=== PATIENT | female | born 1990 | race American Indian/Alaskan Native ===

== ENCOUNTER 2016-05-02 11:07 | Emergency (ER) | payer MEDICAID, OTHER ==
[2016-05-02 11:44] VITALS: BP 114/72
[2016-05-02] MEDS ORDERED: MOTRIN PO ONE (13:30)
--- NOTE | 2016-05-02 13:30 | Emergency Department Report ---
- General Chief Complaint: Upper Respiratory Infection Stated Complaint: BAD HEADACHE/BLURRY VISION X 4DAYS Time Seen by Provider: 05/02/16 12:45 Source: patient Mode of arrival: Ambulatory Limitations: No Limitations - History of Present Illness Initial Comments: Patient here reporting headache since , patient moves around her head. She said is not always in the same area. Denies any nausea vomiting. Denies any blurred vision or decrease in vision. Denies any dizziness. She reports that she also has nasal congestion and runny nose that started a few weeks ago.. She says she feels feverish and chills that started yesterday.. She says she's taken Tylenol, NyQuil, Advil and Motrin p.m. without any relief. She says she has occasional cough that is worse at night. She said her headache is 10 out of 10 and localizes to the front of her head at present. Denies any chest pain or difficulty breathing. She reports that her uterus feels clogged. MD Complaint: fever, cough, rhinorrhea, nasal congestion, sinus pain, other ( headache) -: days(s) (headache), week(s) (runny nose, sinus pain and congestion without coughing for 2 weeks) Severity: severe Severity scale (0 -10): 10 Quality: aching Consistency: intermittent Improves With: NSAID, OTC cold medicine, cough suppressant Worsens With: nothing Context: other (none) Associated Symptoms: fever, chills, headache, rhinorrhea, nasal congestion, cough, other (clogged ears). denies: myalgias, diaphoresis, sore throat, stiff neck, chest pain, shortness of breath, abdominal pain, nausea, vomiting, diarrhea, dysuria, rash, confusion, right sweats, weight loss, epistaxis, hoarseness, ear pain Treatments Prior to Arrival: Ibuprofen, "cold medicine" - Related Data Previous Rx's Medication Instructions Recorded Last Taken Type Amoxicillin [Amoxicillin TAB] 875 mg PO BID #20 tablet 05/02/16 Unknown Rx Fluticasone [Flonase] 1 spray NS QDAY #1 bottle 05/02/16 Unknown Rx Ibuprofen [Motrin] 600 mg PO Q8H PRN #15 tablet 05/02/16 Unknown Rx Loratadine [Claritin] 10 mg PO DAILY #10 tablet 05/02/16 Unknown Rx Allergies Allergy/AdvReac Type Severity Reaction Status Date / Time No Known Allergies Allergy Verified 05/02/16 11:39 ED Review of Systems ROS: Stated complaint: BAD HEADACHE/BLURRY VISION X 4DAYS Other details as noted in HPI Comment: All other systems reviewed and negative Constitutional: chills, fever Eyes: denies: eye pain, eye discharge ENT: congestion, other (sinus pain, clogged ears, runny nose). denies: ear pain , throat pain Respiratory: cough. denies: shortness of breath, SOB with exertion, SOB at rest , stridor, wheezing Cardiovascular: denies: chest pain, palpitations, edema, syncope Gastrointestinal: denies: abdominal pain, nausea, vomiting, diarrhea Musculoskeletal: denies: back pain, arthralgia Neurological: headache. denies: weakness, numbness, paresthesias, confusion, abnormal gait, vertigo ED Past Medical Hx - Past Medical History Previous Medical History?: Yes Hx Hypertension: No Hx Congestive Heart Failure: No Hx Diabetes: No Hx Deep Vein Thrombosis: No Hx Renal Disease: No Hx Sickle Cell Disease: No Hx Seizures: No Hx Asthma: No Hx COPD: No Hx HIV: No Additional medical history: ANEMIA - Surgical History Past Surgical History?: Yes Additional Surgical History: X 3. T & A - Family History Family history: no significant - Social History Smoking Status: Never Smoker Substance Use Type: None - Medications Home Medications: Home Medications Medication Instructions Recorded Confirmed Last Taken Type Amoxicillin [Amoxicillin TAB] 875 mg PO BID #20 tablet 05/02/16 Unknown Rx Fluticasone [Flonase] 1 spray NS QDAY #1 bottle 05/02/16 Unknown Rx Ibuprofen [Motrin] 600 mg PO Q8H PRN #15 tablet 05/02/16 Unknown Rx Loratadine [Claritin] 10 mg PO DAILY #10 tablet 05/02/16 Unknown Rx ED Physical Exam - General Limitations: No Limitations General appearance: alert, in no apparent distress - Head Head exam: Present: atraumatic, normocephalic, normal inspection - Expanded Head Exam Expanded Head exam: Absent: laceration, abrasion, contusion, hematoma, racoon eyes, tompkins's sign, general tenderness, tenderness of temporal artery, CSF rhinorrhea , CSF otorrhea - Eye Eye exam: Present: normal appearance, PERRL, EOMI. Absent: nystagmus, periorbital swelling, periorbital tenderness Pupils: Present: normal accommodation - ENT ENT exam: Present: normal orophraynx, mucous membranes moist, normal external ear exam, other (bilateral nasal mucosa congested with erythema. Bilateral frontal sinuses tender to palpate. Clear nasal drainage). Absent: TM's normal bilaterally (bilateral congested without erythema.) - Neck Neck exam: Present: normal inspection, full ROM. Absent: tenderness, meningismus, lymphadenopathy - Respiratory Respiratory exam: Present: normal lung sounds bilaterally. Absent: respiratory distress, chest wall tenderness - Cardiovascular Cardiovascular Exam: Present: regular rate, normal rhythm, normal heart sounds - Extremities Exam Extremities exam: Present: normal inspection, full ROM, normal capillary refill. Absent: tenderness, pedal edema, joint swelling, calf tenderness - Neurological Exam Neurological exam: Present: alert, oriented X3, normal gait, reflexes normal. Absent: motor sensory deficit - Psychiatric Psychiatric exam: Present: normal affect, normal mood - Skin Skin exam: Present: warm, dry, intact, normal color. Absent: rash ED Course Vital Signs 05/02/16 11:40 Temperature 100.4 F H Pulse Rate 99 H Respiratory 18 Rate Blood Pressure 114/72 O2 Sat by Pulse 100 Oximetry Vital Signs 05/02/16 05/02/16 11:40 14:58 Temperature 100.4 F H 98.6 F Pulse Rate 99 H Respiratory 18 Rate Blood Pressure 114/72 O2 Sat by Pulse 100 Oximetry - Reevaluation(s) Reevaluation #1: 05/02/16 14:48 given Motrin 800 mg in emergency room for pain. ED Medical Decision Making - Lab Data Influenza A and B- - Medical Decision Making ED course: I discussed the patient was physical findings she has sinus infection and she has tried [id number] medication which failed I will go ahead and put her on antibiotic, Flonase and Claritin. Patient was understanding of discharge diagnosis and treatment plan. She is to follow-up with her primary care physician in 3-5 days Critical care attestation.: If time is entered above; I have spent that time in minutes in the direct care of this critically ill patient, excluding procedure time. ED Disposition Clinical Impression: Sinusitis Qualifiers: Sinusitis location: unspecified location Chronicity: unspecified Qualified Code (s): J32.9 - Chronic sinusitis, unspecified Headache Qualifiers: Headache type: unspecified Headache chronicity pattern: acute headache Intractability: not intractable Qualified Code(s): R51 - Headache Disposition: DISCHARGED TO HOME OR SELFCARE Is pt being admited?: No Does the pt Need Aspirin: No Condition: Stable Instructions: Acute Headache (ED), Sinusitis (ED) Additional Instructions: Patient flush your nostrils out with Saline nasal wash Prescriptions: Amoxicillin [Amoxicillin TAB] 875 mg PO BID #20 tablet Fluticasone [Flonase] 1 spray NS QDAY #1 bottle Ibuprofen [Motrin] 600 mg PO Q8H PRN #15 tablet PRN Reason: Pain Loratadine [Claritin] 10 mg PO DAILY #10 tablet Referrals: PRIMARY CARE, [Primary Care Provider] - 3-5 Days Forms: Work/School Release Form(ED)
== END 2016-05-02 14:59 | disposition home or self-care (01) ==
LOC: ED 11:07
DX: J32.9 Chronic sinusitis, unspecified (principal); D64.9 Anemia, unspecified
CPT/HCPCS: 87400; 99282